=== PATIENT | female | born 2000 | race Caucasian/White ===

== ENCOUNTER 2024-08-29 21:14 | Outpatient (CLI) | payer MEDICAID, SELFPAY ==
[2024-08-29 22:00] VITALS: BP 130/75; PULSE 108
[2024-08-29 22:15] VITALS: BP 119/65; PULSE 112
--- NOTE | 2024-08-29 22:52 | PC.NURSE ---
Dr. Austin notified about patient arriving to the unit with complaints of possible SROM. MD notified that a ROM plus was done and the results came back negative. Provider aware that patient looked to be tanya, but patient only felt slight cramping occasionally throughout the day. patient was then given water to drink with resolved the contractions. New orders received to discharge the patient.
[2024-08-29 23:10] LABS: OBXCEM ROM Plus Negative (Negative)
--- NOTE | 2024-08-29 23:15 | PC.NURSE ---
This RN then spoke with the patient and she agreed and felt comfortable with being discharged. Patient leaving at this time.
[2024-08-29 23:18] VITALS: BP 116/67; PULSE 115
== END 2024-08-29 23:15 | disposition home or self-care (01) ==
LOC: ANHOBOP 21:51 → ANHLDR 21:53
PROVIDERS: PCP Student in an Organized Health Care Education/Training Program; Visit Provider Student in an Organized Health Care Education/Training Program
DX: O42.90 Premature rupture of membranes, unspecified as to length of time between rupture and onset of labor, unspecified weeks of gestation (principal); Z3A.00 Weeks of gestation of pregnancy not specified
CPT/HCPCS: 59025; 84112

== ENCOUNTER 2024-08-30 15:23 | Outpatient (CLI) | payer MEDICAID, SELFPAY ==
--- NOTE | ~2024-08-30 | US_ITS ---
EXAMINATION: US OB follow up DATE: 08/30/2024 16:27 INDICATION: Third trimester. TECHNIQUE: Real-time ultrasound of the pelvis was performed. COMPARISON: None. FINDINGS: There is a single living fetus in vertex presentation. The placenta is posterior. heart rate i s 139 beats per minute (bpm). The amniotic fluid index is 12.8 cm, which is normal. The following biometric data were obtained: Biparietal diameter (BPD): 8.6 cm; head circumference (HC): 32.3 cm; abdominal circumference (AC): 33 .5 cm; femur length (FL): 7.1 cm. These measurements are concordant. Estimated weight is 3009 g +/- 451 g, which correlates with the 45th percentile when 09/19/24 is used as estimated date of delivery. As single measurements, these parameters are each equal to the following estimated gestational ages: BPD: 34 weeks 5 days. HC: 36 weeks 4 days. AC: 37 weeks 2 days. FL: 36 weeks 2 days. estimated gestational age based solely on measurements from this exam is 36 weeks 2 days +/- 2 weeks 4 days. IMPRESSION: 1. Single living fetus in vertex presentation. 2. Estimated weight is 3009 g +/- 451 g, which correlates with the 45th percentile when 09/19/24 is used as estimated date of delivery. Reviewed, dictated and finalized at location A. [employer] [employer]
== END 2024-08-30 15:24 | disposition home or self-care (01) ==
PROVIDERS: PCP Student in an Organized Health Care Education/Training Program; Visit Provider Student in an Organized Health Care Education/Training Program
DX: Z34.93 Encounter for supervision of normal pregnancy, unspecified, third trimester (principal); Z3A.36 36 weeks gestation of pregnancy
CPT/HCPCS: 76816